=== PATIENT | female | born 1995 | race African-American/Black ===

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

== ENCOUNTER 2017-12-15 16:00 | Emergency (ER) | payer OTHER ==
[2017-12-15 16:42] VITALS: BP 110/69
--- NOTE | 2017-12-15 17:44 | UC ---
General HPI - HPI Summary HPI Summary: 22 yo BF c/o sore throat, fatigue, bodyaches and PURI x 2-3 days, denies cough or SOB - History of Current Complaint Chief Complaint: UCRespiratory Stated Complaint: SORE THROAT Time Seen by Provider: 12/15/17 16:27 Hx Obtained From: Patient Hx Last Menstrual Period: 2 weeks ago Onset/Duration: Sudden Onset Timing: Constant Onset Severity: Moderate Current Severity: Moderate Pain Intensity: 6 - Allergy/Home Medications Allergies/Adverse Reactions: Allergies Allergy/AdvReac Type Severity Reaction Status Date / Time No Known Allergies Allergy Unverified 12/15/17 16:34 Home Medications: Home Medications Acetaminophen [Acetaminophen Extra Strength] 1,000 mg PO Q12HR PRN 12/15/17 [ History Confirmed 12/15/17] Nyquil 1 cap PO Q12HR PRN 12/15/17 [History] SUMAtriptan TAB* [Imitrex TAB*] 25 mg PO SEE INSTRUCTIONS 12/15/17 [History Confirmed 12/15/17] PMH/Surg Hx/FS Hx/Imm Hx Previously Healthy: Yes - Surgical History Surgical History: None - Family History Known Family History: Negative: Other - NO HISTORY OF GANGLION CYST - Social History Alcohol Use: None Substance Use Type: None Smoking Status (MU): Never Smoked Tobacco - Immunization History Most Recent Influenza Vaccination: 2012 Most Recent Tetanus Shot: unsure Review of Systems Constitutional: Fatigue Skin: Negative Eyes: Negative ENT: Sore Throat Respiratory: Negative Cardiovascular: Negative Gastrointestinal: Negative Genitourinary: Negative Motor: Negative Neurovascular: Negative Musculoskeletal: Negative Neurological: Negative Psychological: Negative All Other Systems Reviewed And Are Negative: Yes Physical Exam Triage Information Reviewed: Yes Appearance: Ill-Appearing, Thin Vital Signs: Initial Vital Signs Temp 36.8 C 12/15/17 16:37 Pulse 68 12/15/17 16:37 Resp 18 12/15/17 16:37 BP 110/69 12/15/17 16:37 Pulse Ox 100 12/15/17 16:37 Eye Exam: Normal ENT Exam: Normal ENT: Positive: Pharyngeal erythema. Negative: Nasal congestion, Nasal drainage , Tonsillar swelling, Tonsillar exudate, Sinus tenderness Dental Exam: Normal Neck: Positive: Enlarged Nodes @ - cervical Respiratory Exam: Normal Cardiovascular Exam: Normal Abdominal Exam: Normal Musculoskeletal Exam: Normal Neurological Exam: Normal Psychological Exam: Normal Skin Exam: Normal Course/Dx - Course Course Of Treatment: Rapid flu negative - Differential Dx - Multi-Symptom Provider Diagnoses: viral syndrome. fatigue Discharge - Sign-Out/Discharge Documenting (check all that apply): Discharge/Admit/Transfer - Discharge Plan Condition: Stable Disposition: HOME Prescriptions: Naproxen [Naproxen 500 mg tab] 500 mg PO BID 10 Days #20 tablet Patient Education Materials: Viral Syndrome (ED) Referrals: Stella Benitez MD [Primary Care Provider] - - Billing Disposition and Condition Condition: STABLE Disposition: HOME
== END 2017-12-15 17:52 | disposition home or self-care (01) ==
LOC: UCEAST 16:00
DX: B34.9 Viral infection, unspecified (principal); R53.83 Other fatigue; J02.9 Acute pharyngitis, unspecified; R52 Pain, unspecified; R51 Headache
CPT/HCPCS: 87502; 87651; 99212; G0463

== ENCOUNTER 2019-02-07 20:36 | Emergency (ER) | payer OTHER ==
[2019-02-07 20:58] VITALS: BP 93/58
--- NOTE | 2019-02-07 21:22 | UC ---
Throat Pain/Nasal [place] HPI - HPI Summary HPI Summary: 31-year-old female who presents to the urgent care with chief complaint of sore throat and concern for strep. 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 Today in the afternoon she noticed a sore throat which she describes as scratchy, pain is 3/10. No nasal congestion, cough, fevers at home. Patient was concerned that she may have strep so came to Patient is otherwise healthy aside from some GI problems. Reports no worsening symptoms of her chronic abdominal pain. - History of Current Complaint Chief Complaint: UCRespiratory Stated Complaint: POSS STREP Time Seen by Provider: 02/07/19 21:02 Hx Last Menstrual Period: 2 weeks ago Pain Intensity: 3 - Allergies/Home Medications Allergies/Adverse Reactions: Allergies Allergy/AdvReac Type Severity Reaction Status Date / Time No Known Allergies Allergy Unverified 02/07/19 20:58 PMH/Surg Hx/FS Hx/Imm Hx Previously Healthy: Yes GI/ History: Other - GI problem unspecified - Surgical History Surgical History: None - Family History Known Family History: Negative: Other - NO HISTORY OF GANGLION CYST - Social History Alcohol Use: Weekly Substance Use Type: None Smoking Status (MU): Never Smoked Tobacco - Immunization History Most Recent Influenza Vaccination: 2012 Most Recent Tetanus Shot: unsure Review of Systems All Other Systems Reviewed And Are Negative: Yes Constitutional: Negative: Fever ENT: Positive: Sore Throat. Negative: Nasal Discharge, Sinus Congestion, Sinus Pain/Tenderness Respiratory: Negative: Cough Physical Exam - Summary Physical Exam Summary: Constitutional: Well-developed, Well-nourished, Alert. (-) Distressed Skin: Warm, Dry HENT: Normocephalic; Eyes: Conjunctiva normal, PERRL posterior oropharynx with erythema no exudates. Neck: Musculoskeletal ROM normal neck. (-) JVD, (-) Stridor Cardio: Rhythm regular, rate normal, Heart sounds normal; Intact distal pulses; Radial pulses are 2+ and symmetric. (-) Murmur Pulmonary/Chest wall: Effort normal. (-) Respiratory distress, (-) Wheezes, (-) Rales Abd: Soft, (-) tenderness, (-) Distension, (-) Guarding, (-) Rebound Musculoskeletal: (-) Edema Lymph: (-) Cervical adenopathy Neuro: Alert, Oriented x3 Psych: Mood and affect Normal Vital Signs: Initial Vital Signs Temp 36.9 C 02/07/19 20:49 Pulse 82 02/07/19 20:49 Resp 18 02/07/19 20:49 BP 93/58 02/07/19 20:49 Pulse Ox 100 02/07/19 20:49 Throat Pain/Nasal Course/Dx - Course Course Of Treatment: 31-year-old female presents with sore throat and concern for strep we'll check rapid strep test Discussed with patient symptom control motion and Tylenol as tolerated 9:34 strep neg, discharge to home - Differential Dx/Diagnosis Provider Diagnosis: Sore throat (viral) Discharge - Sign-Out/Discharge Documenting (check all that apply): Patient Departure All imaging exams completed and their final reports reviewed: No Studies - Discharge Plan Condition: Stable Disposition: HOME Patient Education Materials: Strep Throat (ED) Referrals: Annalisa Cohen MD [Primary Care Provider] - Additional Instructions: You were seen in urgent care for sore throat, a rapid strep test was negative. Please take Motrin and Tylenol at home as needed for pain - Billing Disposition and Condition Condition: STABLE Disposition: Home
== END 2019-02-07 21:50 | disposition home or self-care (01) ==
LOC: UCEAST 20:36
DX: J02.8 Acute pharyngitis due to other specified organisms (principal)
CPT/HCPCS: 87651; 99211; G0463